=== PATIENT | male | born 1940 | race Caucasian/White ===

== ENCOUNTER 2020-05-11 21:30 | Inpatient (IN) | payer MEDICARE ==
[2020-05-11 21:58] LABS: #Eosinphils 0.1 thou/uL (0.0-0.7); #Lymphocytes 1.3 thou/uL (1.20-3.40); #Monocytes 0.4 thou/uL (0.11-0.59); #Neutrophils 5.6 thou/uL (1.40-6.50); %Eosinophils 1.2 % (0.0-10.0); %Monocytes 4.9 % (0.0-10.0); %Neutrophils 75.9 % (42.0-75.0); Hemoglobin 13.6 g/dL (14.0-18.0); Mean Corpuscular HGB CONC 31.8 g/dL (32.0-36.0); Mean Corpuscular Hemoglobin 29.9 pg (27.0-31.0); Mean Corpuscular Volume 93.9 fL (78.0-98.0); Platelet Count 184 thou/uL (130-400); RBC Distribution Width 12.6 % (11.5-14.5); Red Blood Cell (RBC) Count 4.56 mill/uL (4.70-6.10); White Blood Cell (WBC) Count 7.3 thou/uL (4.8-10.8)
[2020-05-11 22:15] LABS: INR-International Normal Ratio 3.8; Prothrombin Time 37.4 sec (12.0-14.7)
[2020-05-11 22:19] LABS: ALT (SGPT) 13 U/L (8-55); AST (SGOT) 19 U/L (5-34); Albumin 3.8 g/dL (3.4-4.8); Alkaline Phosphatase 27 U/L (40-110); Anion Gap 12 mmol/L (10-20); BUN (Urea Nitrogen) 14 mg/dL (8.4-25.7); Bilirubin, Total 0.8 mg/dL (0.2-1.2); CK (CPK) 55 U/L (30-200); Calc. Creatinine Clearance 0 mL/min (70-130); Calcium 9.1 mg/dL (7.8-10.44); Carbon Dioxide 25 mmol/L (23-31); Chloride 102 mmol/L (98-107); Estimated GFR-MDRD 60; Globulin 2.5 g/dL (2.4-3.5); Glucose 123 mg/dL (83-110); Potassium 3.5 mmol/L (3.5-5.1); Protein, Total 6.3 g/dL (5.8-8.1); Sodium 135 mmol/L (136-145)
--- NOTE | 2020-05-11 22:27 | CT ---
CT HEAD WITHOUT CONTRAST: Date: 05/11/2020 INDICATION: Level II stroke. No comparison. FINDINGS: There is an acute hematoma involving the left temporal lobe in the middle cranial fossa. Hematoma sinan sures approximately 2.0 cm. There is intraventricular extension with blood seen in the left lateral v entricle posteriorly and within the temporal horn. Ventricles have normal size and position. There is mild chronic ischemic white matter change. There i s no evidence of infarct. Osseous windows show evidence of prior surgery involving the floor of the left orbit, which is incomp letely evaluated. Sinuses appear clear. IMPRESSION: Acute hematoma in the left temporal lobe in the middle cranial fossa with intraventricular extension. Findings relayed to Dr. Anderson at 2205 hours. CODE CR. POS: SHIREEN
[2020-05-11 22:41] LABS: CKMB 0.9 ng/mL (0-6.6)
[2020-05-11] MEDS ORDERED: Fentanyl 100 MCG/2 ML VIAL ONE (22:52)
[2020-05-11] MEDS ORDERED: HUM PROTHROMBIN CPLX(PCC)4FACT 1,000 UNIT, Human Prothrombin Complx(PCC) 500 UNIT in Ad... IV SCH (23:00)
[2020-05-11] MEDS ORDERED: Phytonadione 10 MG/ML AMP SLOW IVP SCH (23:00)
[2020-05-11] MEDS ORDERED: Phytonadione 10 MG/ML AMP ONE (23:17)
[2020-05-11] MEDS ORDERED: Ondansetron PF 4 MG/2 ML Vial ONE (23:33)
[2020-05-11] MEDS ORDERED: Ondansetron PF 4 MG/2 ML Vial IVP PRN (23:35)
[2020-05-11] MEDS ORDERED: Labetalol HCl 100 MG/20 ML VIAL SLOW IVP PRN (23:35)
[2020-05-11] MEDS ORDERED: Milk Of Magnesia 30 ML UDCUP PO PRN (23:35)
[2020-05-11] MEDS ORDERED: Docusate 100 MG CAP PO PRN (23:35)
[2020-05-11] MEDS ORDERED: hydrALAZINE 20 MG/ML VIAL SLOW IVP PRN (23:38)
[2020-05-11] MEDS ORDERED: Fentanyl 100 MCG/2 ML VIAL SLOW IVP PRN ×2 (23:40)
--- NOTE | 2020-05-12 00:39 | PDOC.HHP ---
Hospitalist HPI - History of Present Illness altered mental status History of Present Illness: history is limited patient with altered mental status only oriented to person, family memberes were not present during my evaluation. Case of an 79 y/o male with a pmhx of sporiasis, htn, ckd, cad s/p ppm, hx of PEs, and factor xiii blood disorder who comes to hospital brought by due to altered mental status. apparently patient was on his usual state of health until today when he was noted by his to be hypoactive, disoriented and speaking nonsense for which she got worried and brought patient to hospital. At the ED patient with was dx with ICH and neurosurgeon was called to evaluated patient. no emergency procedure was needed at the moment hospitalist was called for further evaluation and medical management. of note refers patient recently has been having multiple falls, she refers a fall about 1 week ago when patient fell off a tractor and a previous one requiring orbital repair Hospitalist ROS - Review of Systems ROS unobtainable: due to mental status Hospitalist History - Past Medical History Source: RN notes reviewed, old records - Past Surgical History Past Surgical History: reports: CABG, Cataract Removal Other Surgical History: s/p ppm orbital repair - Family History Other Family History: unable to asses due to disorientation - Exam General Appearance: NAD, awake alert Eye: PERRL, anicteric sclera ENT: normocephalic atraumatic, no oropharyngeal lesions Neck: supple, symmetric, no JVD Heart: RRR, no murmur, no gallops Respiratory: CTAB, no wheezes, no rales, no ronchi Gastrointestinal: soft, non-tender, non-distended, normal bowel sounds Extremities: no cyanosis, no clubbing, no edema Skin: normal turgor, no lesions, no rashes Neurological: cranial nerve grossly intact, normal sensation to touch, no weakness Musculoskeletal: normal tone, normal strength, no muscle wasting Psychiatric: normal affect, normal behavior, A&O x 3, oriented to person Hospitalist Results - Labs Result Diagrams: 05/11/20 21:38 05/11/20 21:38 Lab results: WBC 7.3 thou/uL (4.8-10.8) 05/11/20 21:38 Hgb 13.6 g/dL (14.0-18.0) L 05/11/20 21:38 Hct 42.8 % (42.0-52.0) 05/11/20 21:38 MCV 93.9 fL (78.0-98.0) 05/11/20 21:38 Plt Count 184 thou/uL (130-400) 05/11/20 21:38 Neutrophils % 75.9 % (42.0-75.0) H 05/11/20 21:38 Sodium 135 mmol/L (136-145) L 05/11/20 21:38 Potassium 3.5 mmol/L (3.5-5.1) 05/11/20 21:38 Chloride 102 mmol/L (98-107) 05/11/20 21:38 Carbon Dioxide 25 mmol/L (23-31) 05/11/20 21:38 BUN 14 mg/dL (8.4-25.7) 05/11/20 21:38 Creatinine 1.17 mg/dL (0.7-1.3) 05/11/20 21:38 Glucose 123 mg/dL (83-110) H 05/11/20 21:38 Calcium 9.1 mg/dL (7.8-10.44) 05/11/20 21:38 Total Bilirubin 0.8 mg/dL (0.2-1.2) 05/11/20 21:38 AST 19 U/L (5-34) 05/11/20 21:38 ALT 13 U/L (8-55) 05/11/20 21:38 Alkaline Phosphatase 27 U/L (40-110) L 05/11/20 21:38 Creatine Kinase 55 U/L (30-200) 05/11/20 21:38 CK-MB (CK-2) 0.9 ng/mL (0-6.6) 05/11/20 21:38 Troponin I 0.036 ng/mL (< 0.028) H 05/11/20 21:38 Serum Total Protein 6.3 g/dL (5.8-8.1) 05/11/20 21:38 Albumin 3.8 g/dL (3.4-4.8) 05/11/20 21:38 - Radiology Interpretation CT scan - head Additional Comment: Acute hematoma in the left temporal lobe in the middle cranial fossa with intraventricular extension. Hospitalist H&P A/P - Problem (1) ICH (intracerebral hemorrhage) Code(s): I61.9 - NONTRAUMATIC INTRACEREBRAL HEMORRHAGE, UNSPECIFIED Status: Acute (2) HTN (hypertension) Code(s): I10 - ESSENTIAL (PRIMARY) HYPERTENSION Status: Acute (3) Hx of pulmonary embolus Code(s): Z86.711 - PERSONAL HISTORY OF PULMONARY EMBOLISM Status: Acute (4) CKD (chronic kidney disease) Code(s): N18.9 - CHRONIC KIDNEY DISEASE, UNSPECIFIED Status: Acute (5) CAD (coronary artery disease) Code(s): I25.10 - ATHSCL HEART DISEASE OF [place] CORONARY ARTERY W/O ANG PCTRS Status: Acute (6) Factor XII deficiency Code(s): D68.2 - HEREDITARY DEFICIENCY OF OTHER CLOTTING FACTORS Status: Acute - Plan Plan: 79y/o male with the stated pmhx comes with altered mental state secondary to ich. patient on warfarin secondary to factor xii def, and hx of PEs ICH - brain ct consistent with ich - hx of warfarin use due to factor 12 def and hx of pes. given kcentra and vitk at the ED - neuro surgeon was consulted - maintain systolic b/p below 160 systolic, on labetolol / hydralazine prn - d/c warfarin, will likely need ivf - icu admit - f/u inr - repeat head ct in am - neurologist consulted - on seziure prophylaxis with keppra -no need for surgery at the moment, head ct will be repeated in am. will remain npo in case patient conditions worsens htn / cad - continue home meds, will hold any anticoagulation elevated troponin - likely nstemi type 2 do to ich - will send series to evaluated trend
--- NOTE | 2020-05-12 00:45 | CON ---
DATE OF CONSULTATION: 05/11/2020 HISTORY OF PRESENT ILLNESS: Mr. Lenz is a 79-year-old male, who was brought to the emergency room by EMS. stated that her was acting weird. He was unable to explain his head pain. She states that he was talking gibberish. When I saw Mr. Lenz in the emergency room, he had spontaneous eye opening, he was slightly confused, and he did obey commands. He was moving all his extremities and he had a slight left facial droop. CT of the Brain indicated a left intraventricular hemorrhage. Patient was given Kcentra and Vitamin K in the ED since he is taking Coumadin. REVIEW OF SYSTEMS: CONSTITUTIONAL: Denies fever or chills. ENT: Denies change in vision or hearing. CARDIAC: Denies chest pain, shortness of breath, or diaphoresis. PULMONARY: Denies shortness of breath, cough, or hemoptysis. GI: Denies abdominal pain, nausea, vomiting, diarrhea, or change in stool formation and consistency. : Denies trouble with urination, frequency of urination, or bloody urine. SKIN: Denies skin rash, bruising, bleeding, or skin masses. MUSCULOSKELETAL: As per history of present illness. NEUROLOGICAL: As per the history of present illness. PSYCHOLOGICAL: Denies anxiety, depression, or behavior changes. ALLERGIES: CLINDAMYCIN AND PENICILLIN. CURRENT MEDICATIONS: 1. Metoprolol 25 mg. 2. Simvastatin 20 mg. 3. Fenofibrate 145 mg. 4. Dutasteride/tamsulosin 0.5 mg/0.4 mg. 5. Oxybutynin 10 mg. 6. Warfarin 2 mg. 7. Sertraline 25 mg. 8. Aspirin 81 mg. 9. Pepcid 20 mg. 10. Enbrel 50 mg/mL. PAST MEDICAL HISTORY: Psoriasis, factor XII clotting disorder, hypertension, pulmonary embolism, hiatal hernia, stage 3 kidney disease, pacemaker, and orbital floor fracture. PAST SURGICAL HISTORY: Orbital floor surgery, pacemaker, triple bypass, cataract, and carpal tunnel. FAMILY HISTORY: Father; heart trouble, CHF, renal failure. Mother; COPD, CHF, blood clot. SOCIAL HISTORY: The patient denies alcohol use, illicit drug use, and has never smoked. PHYSICAL EXAMINATION: VITAL SIGNS: BP 120/72, pulse 74, respirations 18, and temperature 98.6. HEENT: Pupils are equal. Extraocular movements are intact. NECK: Soft, supple. No masses are noted. Range of motion is intact and nonpainful. NEUROLOGICAL: A and O x2 with expressive aphasia. UPPER EXTREMITIES: He has good bilateral strength in his deltoids, biceps, triceps, wrist extension, finger extension, finger intrinsics. Lower extremities, he has good strength in the iliopsoas, quadriceps, hamstring, anterior tib, EHL, and gastrocnemius. I could not appreciate any area of dermatomal sensory loss. The toes are downgoing. IMAGING: CT of the brain, left intraventricular hemorrhage. LABORATORY DATA: White blood cells 7.3, platelet count 184. PT 37.4, INR 3.8, sodium 135. PLAN: Kcentra and vitamin K were given in the emergency room. The patient will be admitted to the ICU. Repeat CT of the brain in the morning and CTA of the Head. If scan shows improvement or no change, we will transfer care to Medicine Service. Supportive care. No intracranial surgery at the present time. We will have him follow up in 2 to 3 weeks in our clinic and repeat scan prior to his visit. 50 minutes spent reviewing images, examining the patient, being available for consult questions. Job ID: [id number] [facility]
[2020-05-12 01:12] LABS: Troponin I 0.035 ng/mL (< 0.028)
[2020-05-12] MEDS ORDERED: Docusate 100 MG CAP PO PRN (01:59)
[2020-05-12] MEDS: Sodium Chloride 0.9% 1,000 ML IV SCH ×2 (02:07→13:40)
[2020-05-12 04:00] LABS: INR-International Normal Ratio 1.2; Prothrombin Time 15.5 sec (12.0-14.7)
[2020-05-12 04:18] LABS: Troponin I 0.022 ng/mL (< 0.028)
--- NOTE | 2020-05-12 07:33 | CT ---
PRELIMINARY REPORT/[facility]/EMERGENCY AFTER HOURS PROCEDURE EXAM: CT Head Without Intravenous Contrast. CLINICAL HISTORY: Follow up on bleed TECHNIQUE: Axial computed tomography images of the head/brain without intravenous contrast. COMPARISON: None provided. FINDINGS: BRAIN: Hypodensity of the white matter is nonspecific but likely represents chronic microvascular ischemic d isease. No CT evidence for acute territorial infarct. No midline shift or extra-axial collection. VENTRICLES: Left temporal lobe hematoma with intraventricular extension into the occipital and temporal horns of the left lateral ventricle. Hematoma is unchanged in size and extent compared to prior study dated 05/11/2020. Ventricles are unchanged in size or morphology compared to prior. ORBITS: The orbits are unremarkable. SINUSES AND MASTOIDS: The paranasal sinuses and mastoid air cells are clear. SOFT TISSUES: No significant facial or scalp soft tissue swelling evident. No radiopaque foreign body is seen. BONES: No acute skull fracture. IMPRESSION: Left temporal lobe hematoma with intraventricular extension into the occipital and temporal horns of the left lateral ventricle. Hematoma is unchanged in size and extent compared to prior study dated 05/11/2020. No new intracranial hemorrhage. ELECTRONICALLY SIGNED BY: Socorro Graff MD May 12, 2020 5:02:29 AM CDT This report is intended for review by the ordering physician only, in accordance of law. If you recei ve this report in error, please call [facility] at [phone]. FINAL REPORT Exam: Head CT without contrast HISTORY: Follow-up intraventricular hemorrhage. COMPARISON: 05/11/2020 FINDINGS: Hemorrhage: Stable intraventricular hemorrhage involving the temporal horn of left lateral ventricle as well as the occipital horn of the left lateral ventricle. No new intraventricular or intraparenchymal hemorrhage. Brain parenchyma: Cortical meléndez-white matter differentiation is preserved. No mass effect or midline shift. Basilar cisterns are patent. Ventricular system: Stable configuration Calvarium: Intact. Sinuses and mastoid air cells: Adequate aeration. IMPRESSION: 1. This report is in agreement with initial report by [facility]. 2. Stable intraventricular hemorrhage. Transcribed Date/Time: 05/12/2020 7:37 AM
--- NOTE | 2020-05-12 07:34 | PRG ---
DATE OF SERVICE: 05/12/2020 I personally interviewed and examined the patient, agreed with documentation of John Lechuga PA-C dated 05/11/2020. Briefly, Ag Lenz is a very pleasant 79-year-old gentleman on Coumadin, who fell and struck his head on Monday and was doing reasonably well over the weekend until he had an episode of dysphasia yesterday. Difficulty with communication and interpreting language. CT examination of the brain in our emergency department showed intraventricular hemorrhage in the temporal horn on the left side. There was not significant mass effect. A repeat scan has been done this morning. Overnight Mr. Lenz was admitted to the ICU. He has remained neurologically stable. This morning's CAT scan has already been done. Vitals recorded overnight do not show any significant increase in blood pressure. He is afebrile. On examination, Mr. Lenz is awake. He answers questions appropriately. He is hard of hearing and needs his hearing aids to do so, but eventually does answer appropriately. He follows commands well. He does not have any neglect. His receptive language function is working. This morning's CAT scan shows stability in the size of the intraventricular hemorrhage in the temporal horn on the left side. There is no significant mass effect. Mr. Lenz will need neurosurgical intervention during this hospitalization. We need to get a CT angiogram to make sure there is not a large AVM in the area. I doubt there we will see anything, honestly. Eventually, we may consider cerebral angiography, but that could be done as an outpatient. In two weeks, we will see Mr. Lenz in the office or at least review another CAT scan before letting him restart his Coumadin. Job ID: [id number] [facility]
[2020-05-12] MEDS: levETIRAcetam 500 MG TAB PO SCH ×2 (08:39→20:03)
[2020-05-12] MEDS: Famotidine/PF 20 mg/2ml Vial SLOW IVP SCH (08:39)
[2020-05-12] MEDS: Metoprolol Tartrate 25 MG TAB PO SCH ×2 (08:39→20:03)
[2020-05-12] MEDS: Fenofibrate Nanocrystallized 145 MG TAB PO SCH (08:43)
--- NOTE | 2020-05-12 09:09 | CT ---
CT ANGIOGRAM OF BRAIN WITH AND WITHOUT CONTRAST: DATE: 05/12/2020 HISTORY: 79-year-old male with left intraventricular hemorrhage COMPARISON: 05/12/2020, 05/11/2020 TECHNIQUE: Noncontrast brain CT performed. Iodinated IV contrast injected. Bolus chasing technique scan performed through the head. Coronal and sagittal 3-D MIP reconstructions. FINDINGS: The approximately 2 x 2 x 2 cm left temporal lobe intra-axial hematoma adjacent to the temporal horn of the left lateral ventricle remains unchanged in size. Again noted is the spillage of the hemorrhage into the temporal horn, with blood extending into the occipital horn, of the left lateral ventricle. This has not significant changed. Very small amount of blood is present in the contralateral occipital horn of the right lateral ventricle. No hematoma is visualized in the third v entricle, or in the bodies or frontal horns of the lateral ventricles bilaterally. No mass effect or midline shift. No new hemorrhage. Again noted is the surgical mesh at the floor of the left orbit. Atherosclerotic calcification of bilateral carotid siphons. No evidence of high-grade focal short segment acquired stenosis involving intracranial vertebrals, ba silar, bilateral MCAs, bilateral barrow worker helper, bilateral superior cerebellars, and bilateral ACAs. Left PICA is patent. There is a right AICA-PICA. No evidence of AVM or intracranial aneurysm. No dural venous sinus thrombosis. IMPRESSION: 1) no interval change in the left temporal lobe hematoma spilling into the ventricles via temporal ho rn of left lateral ventricle. 2) no arteriovenous malformation or aneurysm identified. 3) no interval change overall. 4) old surgical repair of left orbital floor blowout fracture
--- NOTE | 2020-05-12 13:06 | CON ---
NEUROLOGY CONSULTATION DATE OF CONSULTATION: 05/12/2020 REASON FOR CONSULTATION: Altered mental status. HISTORY OF PRESENT ILLNESS: Mr. Ag Lenz is a 79-year-old male with history significant for hypertension, end-stage renal disease, coronary artery disease, status post pacemaker, history of pulmonary embolism, and X11 factor deficiency, presented to the hospital with altered mental status. He was brought by the because he was in usual state of health until yesterday when found him extremely disoriented and his speech was not making sense. The decided to bring him to the emergency room with a head CT that was done, which was consistent with left temporal intracranial hemorrhage with extension into the ventricles. Neurosurgery was consulted and no neurosurgical intervention was recommended. The patient was admitted to the CCU for further evaluation. The also reported multiple falls and there was a fall a week ago when the patient fell off the tractor and required orbital repair. REVIEW OF SYSTEMS: Unobtainable due to the patient's mental status. PAST MEDICAL HISTORY: 1. Hypertension. 2. Chronic kidney disease. 3. Coronary artery disease. 4. History of pulmonary embolisms. 5. Hypercoagulable state. 6. Psoriasis. PAST SURGICAL HISTORY: 1. Status post pacemaker implantation. 2. CABG. 3. Cataract removal. 4. Orbital repair secondary to a fall. FAMILY HISTORY: No significant family history in general per records. ALLERGIES: Pencillins, clindamycin PHYSICAL EXAMINATION: 130/72 91 18 GENERAL: Elderly male, in mild distress. CVS: Regular rate and rhythm. CHEST: Clear. ABDOMEN: Soft. NECK: Supple. EXTREMITIES: No clubbing, cyanosis, or edema. NEUROLOGICAL: Mental status; the patient is alert and oriented to person and place. Not oriented to month or year. He does have receptive aphasia. Cranial nerves 2 through 12 intact except dysarthria. Motor; minimal movement of all 4 extremities. Sensory, minimal withdrawal to nailbed pressure. The patient seems to be somnolent, does not follow commands, does not track or maintain eye contact. He does know his name and place, hospital. Cerebellar; did not cooperate with the testing. Gait deferred due to the patient's safety reasons. DATA REVIEWED: I reviewed the labs, he was significant for hyponatremia at 135 and a glucose of 123. CBC was essentially unremarkable except hemoglobin of 13.6. Head CT reviewed, which showed acute hematoma in the left temporal lobe and the middle cranial fossa with intraventricular extension. The repeat head CT from today was reviewed, which did not show any interval change. EEG was reviewed, which was negative for underlying seizure activity. Lab results: WBC 7.3 thou/uL (4.8-10.8) 05/11/20 21:38 Hgb 13.6 g/dL (14.0-18.0) L 05/11/20 21:38 Hct 42.8 % (42.0-52.0) 05/11/20 21:38 MCV 93.9 fL (78.0-98.0) 05/11/20 21:38 Plt Count 184 thou/uL (130-400) 05/11/20 21:38 Neutrophils % 75.9 % (42.0-75.0) H 05/11/20 21:38 Sodium 135 mmol/L (136-145) L 05/11/20 21:38 Potassium 3.5 mmol/L (3.5-5.1) 05/11/20 21:38 Chloride 102 mmol/L (98-107) 05/11/20 21:38 Carbon Dioxide 25 mmol/L (23-31) 05/11/20 21:38 BUN 14 mg/dL (8.4-25.7) 05/11/20 21:38 Creatinine 1.17 mg/dL (0.7-1.3) 05/11/20 21:38 Glucose 123 mg/dL (83-110) H 05/11/20 21:38 Calcium 9.1 mg/dL (7.8-10.44) 05/11/20 21:38 Total Bilirubin 0.8 mg/dL (0.2-1.2) 05/11/20 21:38 AST 19 U/L (5-34) 05/11/20 21:38 ALT 13 U/L (8-55) 05/11/20 21:38 Alkaline Phosphatase 27 U/L (40-110) L 05/11/20 21:38 Creatine Kinase 55 U/L (30-200) 05/11/20 21:38 CK-MB (CK-2) 0.9 ng/mL (0-6.6) 05/11/20 21:38 Troponin I 0.036 ng/mL (< 0.028) H 05/11/20 21:38 Serum Total Protein 6.3 g/dL (5.8-8.1) 05/11/20 21:38 Albumin 3.8 g/dL (3.4-4.8) 05/11/20 21:38 - Radiology Interpretation CT scan - head Acute hematoma in the left temporal lobe in the middle cranial fossa with intraventricular extension. - Problem list (1) ICH (intracerebral hemorrhage) Code(s): I61.9 - NONTRAUMATIC INTRACEREBRAL HEMORRHAGE, UNSPECIFIED Status: Acute (2) HTN (hypertension) Code(s): I10 - ESSENTIAL (PRIMARY) HYPERTENSION Status: Acute (3) Hx of pulmonary embolus Code(s): Z86.711 - PERSONAL HISTORY OF PULMONARY EMBOLISM Status: Acute (4) CKD (chronic kidney disease) Code(s): N18.9 - CHRONIC KIDNEY DISEASE, UNSPECIFIED Status: Acute (5) CAD (coronary artery disease) Code(s): I25.10 - ATHSCL HEART DISEASE OF [place] CORONARY ARTERY W/O ANG PCTRS Status: Acute (6) Factor XII deficiency Code(s): D68.2 - HEREDITARY DEFICIENCY OF OTHER CLOTTING FACTORS Status: Acute ASSESSMENT AND PLAN: Mr. Ag Lenz is consulted for altered mental status. Altered mental status is most likely secondary to acute intracranial hemorrhage. He is also on warfarin secondary to X11 deficiency and history of pulmonary embolisms. Discontinue warfarin because of recent bleed. Neuro checks every 2 hours. Consult Neurosurgery and stat noncontrast head CT if the neurological condition declines. Strict control of blood pressure below 160, on labetalol and hydralazine p.r.n. Telemetry. Continue Keppra for seizure prophylaxis. Recommend EEG to rule out underlying seizure activity. Continue home medications, but hold any anticoagulation or antiplatelet therapy at this time. The plan is discussed with the patient and the nursing staff. We will continue to follow. Thank you for the consult. Job ID: [id number] [facility]
[2020-05-12] MEDS ORDERED: Iopamidol-370 76% 500 ML 1 ML ONE (16:21)
--- NOTE | 2020-05-12 19:58 | CON ---
DATE OF CONSULTATION: HISTORY OF PRESENT ILLNESS: Delfin is a 79-year-old male, who was admitted with a brain bleed after presenting with confusion. We were consulted because of his presence in the Critical Care Unit. PAST MEDICAL HISTORY: Remarkable for; 1. Psoriasis. 2. Hypertension. 3. History of coronary artery disease. 4. History of pulmonary embolism. 5. History of chronic kidney disease. 6. History of coronary artery bypass grafting. 7. History of cataract surgery. FAMILY HISTORY: Negative for lung disease in early age. REVIEW OF SYSTEMS: Not accurately obtainable. PHYSICAL EXAMINATION: VITAL SIGNS: Heart rates in the 60, blood pressure 124/55, respiratory rates in the teens. HEAD AND NECK: Unremarkable. He is protecting his airway. LUNGS: Clear. He is on room air. HEART: Regular rhythm. S1, S2 are normal. Grade 1 to 2/6 systolic murmur. EXTREMITIES: Without asymmetry or edema. NEUROLOGIC: He is oriented at times to person and place. LABORATORY DATA: His CT scan is unchanged. Tentatively scheduled for CT angiogram today. He is stable for now. We will follow along with the other physicians. Job ID: [id number]
[2020-05-12] MEDS: Atorvastatin Calcium 10 MG TAB PO SCH (20:03)
[2020-05-12] MEDS: Acetaminophen 325 MG TAB PO PRN (20:04)
--- NOTE | 2020-05-12 21:22 | EEG ---
DATE OF SERVICE: 05/12/2020 ATTENDING PHYSICIAN: Adenike Sahrma MD This EEG was performed using 24-channel payworkstek video digital EEG machine with 24-disk electrodes. This was an extended 2 hours 5 minutes of inpatient video EEG recording. Digital analysis of the EEG was done for spike and seizure detection which revealed no abnormalities. BACKGROUND: The posterior background rhythm is 9-10 hertz. The background rhythm attenuates with eye opening and enhances with eye closure. HYPERVENTILATION: Not performed. PHOTIC STIMULATION: No significant response seen with photic stimulation. SLEEP: Drowsiness and sleep are observed. EEG DIAGNOSIS: Occasional irregular theta activity seen during the recording. CLINICAL INTERPRETATION: This EEG is consistent with mild generalized nonspecific cerebral dysfunction. No ictal or interictal epileptiform abnormalities seen during the recording. Job ID: [id number]
[2020-05-13] MEDS: Sodium Chloride 0.9% 1,000 ML IV SCH ×2 (06:27→20:13)
--- NOTE | 2020-05-13 07:31 | PRG ---
DATE OF SERVICE: 05/13/2020 I saw Mr. Lenz in the ICU this morning. A CT angiogram was done yesterday. Mr. Lenz is hard of hearing, but does not have any complaints for me. His vitals have been stable as is his neurological examination. The CT angiogram does not show any obvious large flow voids in the area of the temporal horn of the lateral ventricle on the left side where his hemorrhage is located. There is no obvious [place] aneurysm and no other obvious vascular malformation. Mr. Lenz will not need neurosurgical intervention during this hospitalization. We are going to order followup CT scan of the brain in approximately 3 weeks from our clinic and I will call him with the results. Please call with questions. (15 min, >50% counseling, educating, coordinating care) Job ID: [id number] [facility]
[2020-05-13] MEDS: Metoprolol Tartrate 25 MG TAB PO SCH ×3 (09:41→21:07)
[2020-05-13] MEDS: Acetaminophen 325 MG TAB PO PRN (09:41)
[2020-05-13] MEDS: Fenofibrate Nanocrystallized 145 MG TAB PO SCH (09:41)
[2020-05-13] MEDS: levETIRAcetam 500 MG TAB PO SCH ×2 (09:41→20:12)
--- NOTE | 2020-05-13 09:46 | PRG ---
DATE OF SERVICE: 05/13/2020 OBJECTIVE: VITAL SIGNS: Delfin is afebrile. Heart rate is in the 60, blood pressure 102/61. LUNGS: Clear. HEART: Regular rhythm. ABDOMEN: Soft. LABORATORY DATA: No new lab. ASSESSMENT AND PLAN: No obvious AV malformation was identified. No obvious aneurysm was identified on a CT angiogram. Anticipated to have a followup CT in 3 weeks. He probably should be referred to rehab for a while unless he shows that he can quickly get back to his baseline. He is stable to move out of critical care unit. We will sign off. Job ID: [id number]
[2020-05-13] MEDS: Famotidine/PF 20 mg/2ml Vial SLOW IVP SCH (10:02)
--- NOTE | 2020-05-13 12:36 | PDOC.HOSPP ---
- Subjective Encounter Date: 05/13/20 Subjective: NEUROLOGY PROGRESS NOTE Patient alert and oriented and participating with PT. - Objective Vital Signs & Weight: Vital Signs (12 hours) Temp 05/13/20 08:00 98.3 F 05/13/20 04:00 98.6 F Weight Admit Weight 180 lb Weight 179 lb 0.246 oz Most Recent Monitor Data Heart Rate from ECG 67 NIBP 102/61 NIBP BP-Mean 74 Respiration from ECG 22 SpO2 95 I&O: 05/12/20 05/13/20 05/14/20 06:59 06:59 06:59 Intake Total 310 1845 480 Output Total 475 1395 425 Balance -165 450 55 Result Diagrams: 05/11/20 21:38 05/11/20 21:38 Radiology Reviewed by me: Yes EKG Reviewed by me: Yes Hospitalist ROS - Review of Systems Constitutional: denies: fever, chills, sweats, weakness, malaise, other Eyes: denies: pain, vision change, conjunctivae inflammation, eyelid inflammation, redness, other ENT: denies: ear pain, ear discharge, nose pain, nose discharge, nose congestion , mouth pain, mouth swelling, throat pain, throat swelling, other Respiratory: denies: cough, dry, shortness of breath, hemoptysis, SOB with excertion, pleuritic pain, sputum, wheezing, other Genitourinary: denies: dysuria, frequency, incontinence, hematuria, retention, other Musculoskeletal: denies: neck pain, shoulder pain, arm pain, back pain, hand pain, leg pain, foot pain, other Skin: denies: rash, lesions, winsome, bruising, other Neurological: reports: weakness, change in speech. denies: numbness, incoordination, confusion, seizures, other - Medication Medications: Active Medications Generic Name Dose Route Start Last Admin Trade Name Freq PRN Reason Stop Dose Admin Acetaminophen 650 mg 05/11/20 23:35 05/13/20 09:41 Tylenol PO 650 mg Q6H PRN Administration Fever > 101 or Headache Atorvastatin Calcium 10 mg 05/12/20 21:00 05/12/20 20:03 Lipitor PO 10 mg HS FERMIN Administration Fenofibrate 145 mg 05/12/20 09:00 05/13/20 09:41 Tricor PO 145 mg DAILY FERMIN Administration Sodium Chloride 1,000 mls @ 70 mls/hr 05/11/20 23:45 05/13/20 06:27 Normal Saline 0.9% IV 1,000 mls .[id number] FERMIN Administration Levetiracetam 500 mg 05/12/20 09:00 05/13/20 09:41 Keppra PO 500 mg BID FERMIN Administration Metoprolol Tartrate 25 mg 05/12/20 09:00 05/13/20 09:41 Lopressor PO 25 mg BID FERMIN Administration Sertraline HCl 25 mg 05/12/20 09:00 05/13/20 09:41 Zoloft PO 25 mg DAILY FERMIN Administration - Exam General Appearance: awake alert Eye: PERRL ENT: normocephalic atraumatic Neck: supple Heart: RRR Respiratory: CTAB Gastrointestinal: soft Extremities: no cyanosis Skin: normal turgor Neurological: no new deficit Musculoskeletal: normal tone, no muscle wasting Psychiatric: normal affect, normal behavior Hosp A/P (1) ICH (intracerebral hemorrhage) Code(s): I61.9 - NONTRAUMATIC INTRACEREBRAL HEMORRHAGE, UNSPECIFIED Status: Acute (2) CAD (coronary artery disease) Code(s): I25.10 - ATHSCL HEART DISEASE OF [place] CORONARY ARTERY W/O ANG PCTRS Status: Acute (3) CKD (chronic kidney disease) Code(s): N18.9 - CHRONIC KIDNEY DISEASE, UNSPECIFIED Status: Acute (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 HCT showed stable left temporal hemorrhage, EEG reviewed and was negative for seizure activity. Neurochecks every 4 hours. Neurosurgery on board. No surgical intervention needed at this time. CTA head negative for aneurysm. Telemetry Hold anticoagulation. Strict control of BP. PT/OT/Speech. Continue medical management per primary team.
--- NOTE | 2020-05-13 18:37 | PDOC.HOSPP ---
- Subjective Encounter Date: 05/13/20 Encounter Time: 11:00 Subjective: Pt seen for followup re; intracranial bleed. Pt hard of hearing, denies any complaints. - Objective Vital Signs & Weight: Vital Signs (12 hours) Temp Pulse Ox 05/13/20 16:00 98.5 F 05/13/20 13:00 98.6 F 05/13/20 08:00 98.3 F 100 Weight Admit Weight 180 lb Weight 179 lb 0.246 oz Most Recent Monitor Data Heart Rate from ECG 61 NIBP 126/67 NIBP BP-Mean 86 Respiration from ECG 23 SpO2 97 I&O: 05/12/20 05/13/20 05/14/20 06:59 06:59 06:59 Intake Total 310 1845 1160 Output Total 475 1395 625 Balance -165 450 535 Result Diagrams: 05/11/20 21:38 05/11/20 21:38 Hospitalist ROS - Medication Medications: Active Medications Generic Name Dose Route Start Last Admin Trade Name Freq PRN Reason Stop Dose Admin Acetaminophen 650 mg 05/11/20 23:35 05/13/20 09:41 Tylenol PO 650 mg Q6H PRN Administration Fever > 101 or Headache Atorvastatin Calcium 10 mg 05/12/20 21:00 05/12/20 20:03 Lipitor PO 10 mg HS FERMIN Administration Fenofibrate 145 mg 05/12/20 09:00 05/13/20 09:41 Tricor PO 145 mg DAILY FERMIN Administration Sodium Chloride 1,000 mls @ 70 mls/hr 05/11/20 23:45 05/13/20 06:27 Normal Saline 0.9% IV 1,000 mls .[id number] FERMIN Administration Levetiracetam 500 mg 05/12/20 09:00 05/13/20 09:41 Keppra PO 500 mg BID FERMIN Administration Metoprolol Tartrate 25 mg 05/12/20 09:00 05/13/20 09:41 Lopressor PO 25 mg BID FERMIN Administration Sertraline HCl 25 mg 05/12/20 09:00 05/13/20 09:41 Zoloft PO 25 mg DAILY FERMIN Administration Hosp A/P - Plan - Assessment (1) ICH (intracerebral hemorrhage) Code(s): I61.9 - NONTRAUMATIC INTRACEREBRAL HEMORRHAGE, UNSPECIFIED Status: Acute (2) HTN (hypertension) Code(s): I10 - ESSENTIAL (PRIMARY) HYPERTENSION Status: Acute (3) Hx of pulmonary embolus Code(s): Z86.711 - PERSONAL HISTORY OF PULMONARY EMBOLISM Status: Acute (4) CKD (chronic kidney disease) Code(s): N18.9 - CHRONIC KIDNEY DISEASE, UNSPECIFIED Status: Acute (5) CAD (coronary artery disease) Code(s): I25.10 - ATHSCL HEART DISEASE OF [place] CORONARY ARTERY W/O ANG PCTRS Status: Acute (6) 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
[2020-05-13] MEDS: Atorvastatin Calcium 10 MG TAB PO SCH (20:12)
[2020-05-14] MEDS: levETIRAcetam 500 MG TAB PO SCH ×2 (08:59→21:06)
[2020-05-14] MEDS: Sodium Chloride 0.9% 1,000 ML IV SCH (08:59)
[2020-05-14] MEDS: Acetaminophen 325 MG TAB PO PRN ×2 (09:00→18:28)
[2020-05-14] MEDS: Metoprolol Tartrate 25 MG TAB PO SCH ×2 (09:00→21:06)
[2020-05-14] MEDS: Fenofibrate Nanocrystallized 145 MG TAB PO SCH (09:00)
[2020-05-14 12:25] LABS: #Eosinphils 0.2 thou/uL (0.0-0.7); #Lymphocytes 1.5 thou/uL (1.20-3.40); #Monocytes 0.6 thou/uL (0.11-0.59); #Neutrophils 5.5 thou/uL (1.40-6.50); %Basophils 0.6 % (0.0-1.0); %Eosinophils 3.1 % (0.0-10.0); %Lymphocytes 18.6 % (21.0-51.0); %Monocytes 7.3 % (0.0-10.0); %Neutrophils 70.3 % (42.0-75.0); Hemoglobin 14.6 g/dL (14.0-18.0); Mean Corpuscular HGB CONC 32.6 g/dL (32.0-36.0); Mean Corpuscular Hemoglobin 30.7 pg (27.0-31.0); Mean Corpuscular Volume 94.3 fL (78.0-98.0); Mean Platelet Volume 7.7 fL (7.4-10.4); Platelet Count 174 thou/uL (130-400); RBC Distribution Width 12.4 % (11.5-14.5); Red Blood Cell (RBC) Count 4.75 mill/uL (4.70-6.10); White Blood Cell (WBC) Count 7.9 thou/uL (4.8-10.8)
[2020-05-14 12:33] VITALS: BMI 27.6
[2020-05-14 12:44] LABS: Anion Gap 14 mmol/L (10-20); BUN (Urea Nitrogen) 12 mg/dL (8.4-25.7); Calc. Creatinine Clearance 80 mL/min (70-130); Calcium 8.6 mg/dL (7.8-10.44); Carbon Dioxide 22 mmol/L (23-31); Chloride 103 mmol/L (98-107); Estimated GFR-MDRD 85; Glucose 109 mg/dL (83-110); Potassium 3.7 mmol/L (3.5-5.1); Sodium 135 mmol/L (136-145)
--- NOTE | 2020-05-14 14:59 | PDOC.HOSPP ---
- Subjective Encounter Date: 05/14/20 Subjective: NEUROLOGY PROGRESS NOTE Patient alert and oriented and following commands appropriately. - Objective Vital Signs & Weight: Vital Signs (12 hours) Temp Pulse Ox 05/14/20 12:00 98.9 F 05/14/20 08:00 98.6 F 100 05/14/20 04:00 99.4 F Weight Admit Weight 180 lb Weight 181 lb 8 oz Most Recent Monitor Data Heart Rate from ECG 60 NIBP 134/71 NIBP BP-Mean 92 Respiration from ECG 23 SpO2 100 I&O: 05/13/20 05/14/20 05/15/20 06:59 06:59 06:59 Intake Total 1845 1220 480 Output Total 1395 1250 750 Balance 450 -30 -270 Result Diagrams: 05/14/20 12:08 05/14/20 12:08 Radiology Reviewed by me: Yes EKG Reviewed by me: Yes Hospitalist ROS - Review of Systems Constitutional: denies: fever, chills, sweats, weakness, malaise, other Eyes: denies: pain, vision change, conjunctivae inflammation, eyelid inflammation, redness, other ENT: denies: ear pain, ear discharge, nose pain, nose discharge, nose congestion , mouth pain, mouth swelling, throat pain, throat swelling, other Respiratory: denies: cough, dry, shortness of breath, hemoptysis, SOB with excertion, pleuritic pain, sputum, wheezing, other Cardiovascular: denies: chest pain, palpitations, orthopnea, paroxysmal noc. dyspnea, edema, light headedness, other Gastrointestinal: denies: nausea, vomiting, abdominal pain, diarrhea, constipation, melena, hematochezia, other Genitourinary: denies: dysuria, frequency, incontinence, hematuria, retention, other Musculoskeletal: denies: neck pain, shoulder pain, arm pain, back pain, hand pain, leg pain, foot pain, other Skin: denies: rash, lesions, winsome, bruising, other Neurological: denies: weakness, numbness, incoordination, change in speech, confusion, seizures, other - Medication Medications: Active Medications Generic Name Dose Route Start Last Admin Trade Name Freq PRN Reason Stop Dose Admin Acetaminophen 650 mg 05/11/20 23:35 05/14/20 09:00 Tylenol PO 650 mg Q6H PRN Administration Fever > 101 or Headache Atorvastatin Calcium 10 mg 05/12/20 21:00 05/13/20 20:12 Lipitor PO 10 mg HS FERMIN Administration Fenofibrate 145 mg 05/12/20 09:00 05/14/20 09:00 Tricor PO 145 mg DAILY FERMIN Administration Sodium Chloride 1,000 mls @ 70 mls/hr 05/11/20 23:45 05/14/20 08:59 Normal Saline 0.9% IV Not Given .[id number] FERMIN Levetiracetam 500 mg 05/12/20 09:00 05/14/20 08:59 Keppra PO 500 mg BID FERMIN Administration Metoprolol Tartrate 25 mg 05/12/20 09:00 05/14/20 09:00 Lopressor PO 25 mg BID FERMIN Administration Pantoprazole Sodium 40 mg 05/14/20 09:00 05/14/20 09:00 Protonix PO 40 mg DAILY FERMIN Administration Sertraline HCl 25 mg 05/12/20 09:00 05/14/20 09:00 Zoloft PO 25 mg DAILY FERMIN Administration Sodium Chloride 10 ml 05/13/20 21:00 05/14/20 09:00 Flush - Normal Saline IVF 10 ml Q12HR FERMIN Administration - Exam General Appearance: awake alert Eye: PERRL ENT: normocephalic atraumatic Neck: supple Heart: RRR Respiratory: CTAB, rales Gastrointestinal: soft Extremities: no cyanosis Skin: normal turgor Neurological: no new deficit Musculoskeletal: normal tone Psychiatric: normal affect Hosp A/P (1) ICH (intracerebral hemorrhage) Code(s): I61.9 - NONTRAUMATIC INTRACEREBRAL HEMORRHAGE, UNSPECIFIED Status: Acute (2) CAD (coronary artery disease) Code(s): I25.10 - ATHSCL HEART DISEASE OF [place] CORONARY ARTERY W/O ANG PCTRS Status: Acute (3) CKD (chronic kidney disease) Code(s): N18.9 - CHRONIC KIDNEY DISEASE, UNSPECIFIED Status: Acute (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 HCT showed stable left temporal hemorrhage, EEG reviewed and was negative for seizure activity. Neurochecks every 4 hours. Neurosurgery on board. No surgical intervention needed at this time. CTA head negative for aneurysm or stenosis. Telemetry Hold anticoagulation. Strict control of BP. PT/OT/Speech. Possible discharge t rehab. Continue medical management per primary team. PLan discussed with the patient and the nursing staff.
--- NOTE | 2020-05-14 19:36 | PDOC.HOSPP ---
- Subjective Encounter Date: 05/14/20 Encounter Time: 15:40 Subjective: Pt seen for followup for intracranial bleed. Sleepy but arousable, answering questions, denies any complaints. - Objective Vital Signs & Weight: Vital Signs (12 hours) Temp Pulse Pulse Resp BP BP BP 05/14/20 16:53 98.0 F 61 16 130/101 H 05/14/20 16:00 98.9 F 05/14/20 14:26 66 128/72 133/71 05/14/20 12:00 98.9 F 05/14/20 08:00 98.6 F Pulse Ox Pulse Ox 05/14/20 16:53 99 05/14/20 16:00 05/14/20 14:26 100 05/14/20 12:00 05/14/20 08:00 100 Weight Admit Weight 180 lb Weight 181 lb 8 oz Most Recent Monitor Data Heart Rate from ECG 62 NIBP 116/65 NIBP BP-Mean 82 Respiration from ECG 19 SpO2 100 I&O: 05/13/20 05/14/20 05/15/20 06:59 06:59 06:59 Intake Total 1845 1220 680 Output Total 1395 1250 1150 Balance 450 -30 -470 Result Diagrams: 05/14/20 12:08 05/14/20 12:08 Additional Labs: Labs and MARs reviewed by me EKG Reviewed by me: Yes (Tele: NSR) Hospitalist ROS - Review of Systems Cardiovascular: denies: chest pain, palpitations, orthopnea, paroxysmal noc. dyspnea, edema, light headedness Genitourinary: denies: dysuria, frequency, incontinence, hematuria, retention - Medication Medications: Active Medications Generic Name Dose Route Start Last Admin Trade Name Freq PRN Reason Stop Dose Admin Acetaminophen 650 mg 05/11/20 23:35 05/14/20 18:28 Tylenol PO 650 mg Q6H PRN Administration Fever > 101 or Headache Atorvastatin Calcium 10 mg 05/12/20 21:00 05/13/20 20:12 Lipitor PO 10 mg HS FERMIN Administration Fenofibrate 145 mg 05/12/20 09:00 05/14/20 09:00 Tricor PO 145 mg DAILY FERMIN Administration Sodium Chloride 1,000 mls @ 70 mls/hr 05/11/20 23:45 05/14/20 08:59 Normal Saline 0.9% IV Not Given .[id number] FERMIN Levetiracetam 500 mg 05/12/20 09:00 05/14/20 08:59 Keppra PO 500 mg BID FERMIN Administration Metoprolol Tartrate 25 mg 05/12/20 09:00 05/14/20 09:00 Lopressor PO 25 mg BID FERMIN Administration Pantoprazole Sodium 40 mg 05/14/20 09:00 05/14/20 09:00 Protonix PO 40 mg DAILY FERMIN Administration Sertraline HCl 25 mg 05/12/20 09:00 05/14/20 09:00 Zoloft PO 25 mg DAILY FERMIN Administration Sodium Chloride 10 ml 05/13/20 21:00 05/14/20 09:00 Flush - Normal Saline IVF 10 ml Q12HR FERMIN Administration - Exam Eye: anicteric sclera ENT: moist mucosa Neck: supple, symmetric Heart: RRR Respiratory: CTAB Gastrointestinal: soft, non-tender Extremities: no cyanosis Musculoskeletal: normal tone, normal strength Psychiatric: normal affect, normal behavior Hosp A/P - Plan - Assessment (1) ICH (intracerebral hemorrhage) Code(s): I61.9 - NONTRAUMATIC INTRACEREBRAL HEMORRHAGE, UNSPECIFIED Status: Acute (2) HTN (hypertension) Code(s): I10 - ESSENTIAL (PRIMARY) HYPERTENSION Status: Chronic (3) Hx of pulmonary embolus Code(s): Z86.711 - PERSONAL HISTORY OF PULMONARY EMBOLISM Status: Chronic (4) CKD (chronic kidney disease) Code(s): N18.9 - CHRONIC KIDNEY DISEASE, UNSPECIFIED Status: Chronic (5) CAD (coronary artery disease) Code(s): I25.10 - ATHSCL HEART DISEASE OF [place] CORONARY ARTERY W/O ANG PCTRS Status: Chronic (6) 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
[2020-05-14] MEDS: Atorvastatin Calcium 10 MG TAB PO SCH (21:06)
[2020-05-15 05:27] LABS: #Eosinphils 0.2 thou/uL (0.0-0.7); #Lymphocytes 1.8 thou/uL (1.20-3.40); #Monocytes 0.6 thou/uL (0.11-0.59); #Neutrophils 4.9 thou/uL (1.40-6.50); %Basophils 0.2 % (0.0-1.0); %Eosinophils 3.1 % (0.0-10.0); %Lymphocytes 23.9 % (21.0-51.0); %Monocytes 7.6 % (0.0-10.0); %Neutrophils 65.2 % (42.0-75.0); Hemoglobin 14.3 g/dL (14.0-18.0); Mean Corpuscular HGB CONC 32.6 g/dL (32.0-36.0); Mean Corpuscular Hemoglobin 30.1 pg (27.0-31.0); Mean Corpuscular Volume 92.3 fL (78.0-98.0); Mean Platelet Volume 7.9 fL (7.4-10.4); Platelet Count 180 thou/uL (130-400); RBC Distribution Width 12.5 % (11.5-14.5); Red Blood Cell (RBC) Count 4.74 mill/uL (4.70-6.10); White Blood Cell (WBC) Count 7.6 thou/uL (4.8-10.8)
[2020-05-15 05:49] LABS: Anion Gap 14 mmol/L (10-20); BUN (Urea Nitrogen) 13 mg/dL (8.4-25.7); Calc. Creatinine Clearance 75 mL/min (70-130); Calcium 8.9 mg/dL (7.8-10.44); Carbon Dioxide 24 mmol/L (23-31); Chloride 102 mmol/L (98-107); Estimated GFR-MDRD 79; Glucose 93 mg/dL (83-110); Potassium 3.6 mmol/L (3.5-5.1); Sodium 136 mmol/L (136-145)
[2020-05-15] MEDS: levETIRAcetam 500 MG TAB PO SCH ×2 (09:44→21:22)
[2020-05-15] MEDS: Fenofibrate Nanocrystallized 145 MG TAB PO SCH (09:45)
[2020-05-15] MEDS: Metoprolol Tartrate 25 MG TAB PO SCH ×2 (09:45→21:22)
--- NOTE | 2020-05-15 11:33 | PDOC.HOSPP ---
- Subjective Encounter Date: 05/15/20 Subjective: NEUROLOGY PROGRESS NOTE Patient alert and oriented and following commands appropriately. No acute events overnight. - Objective Vital Signs & Weight: Vital Signs (12 hours) Temp Pulse Resp BP BP Pulse Ox 05/15/20 11:11 98.5 F 65 22 H 113/57 L 95 05/15/20 07:56 98.2 F 67 14 100/51 L 99 05/15/20 03:47 98 F 59 L 14 120/58 L 96 05/15/20 00:02 97.7 F 62 17 118/59 L 97 Weight Admit Weight 180 lb Weight 179 lb 12.8 oz Most Recent Monitor Data Heart Rate from ECG 62 NIBP 116/65 NIBP BP-Mean 82 Respiration from ECG 19 SpO2 100 I&O: 05/14/20 05/15/20 05/16/20 06:59 06:59 06:59 Intake Total 1220 680 Output Total 1250 1150 Balance -30 -470 Result Diagrams: 05/15/20 05:14 05/15/20 05:14 Additional Labs: Accuchecks 05/15/20 06:48 POC Glucose 92 Radiology Reviewed by me: Yes EKG Reviewed by me: Yes Hospitalist ROS - Review of Systems Constitutional: denies: fever, chills, sweats, weakness, malaise, other Eyes: denies: pain, vision change, conjunctivae inflammation, eyelid inflammation, redness, other ENT: denies: ear pain, ear discharge, nose pain, nose discharge, nose congestion , mouth pain, mouth swelling, throat pain, throat swelling, other Respiratory: denies: cough, dry, shortness of breath, hemoptysis, SOB with excertion, pleuritic pain, sputum, wheezing, other Cardiovascular: denies: chest pain, palpitations, orthopnea, paroxysmal noc. dyspnea, edema, light headedness, other Gastrointestinal: denies: nausea, vomiting, abdominal pain, diarrhea, constipation, melena, hematochezia, other Genitourinary: denies: dysuria, frequency, incontinence, hematuria, retention, other Musculoskeletal: denies: neck pain, shoulder pain, arm pain, back pain, hand pain, leg pain, foot pain, other Skin: denies: rash, lesions, winsome, bruising, other Neurological: denies: weakness, numbness, incoordination, change in speech, confusion, seizures, other - Medication Medications: Active Medications Generic Name Dose Route Start Last Admin Trade Name Freq PRN Reason Stop Dose Admin Acetaminophen 650 mg 05/11/20 23:35 05/14/20 18:28 Tylenol PO 650 mg Q6H PRN Administration Fever > 101 or Headache Atorvastatin Calcium 10 mg 05/12/20 21:00 05/14/20 21:06 Lipitor PO 10 mg HS FERMIN Administration Fenofibrate 145 mg 05/12/20 09:00 05/15/20 09:45 Tricor PO 145 mg DAILY FERMIN Administration Levetiracetam 500 mg 05/12/20 09:00 05/15/20 09:44 Keppra PO 500 mg BID FERMIN Administration Metoprolol Tartrate 25 mg 05/12/20 09:00 05/15/20 09:45 Lopressor PO 25 mg BID FERMIN Administration Pantoprazole Sodium 40 mg 05/14/20 09:00 05/15/20 09:43 Protonix PO 40 mg DAILY FERMIN Administration Sertraline HCl 25 mg 05/12/20 09:00 05/15/20 09:43 Zoloft PO 25 mg DAILY FERMIN Administration Sodium Chloride 10 ml 05/13/20 21:00 05/15/20 09:48 Flush - Normal Saline IVF 10 ml Q12HR FERMIN Administration - Exam General Appearance: awake alert Eye: PERRL ENT: normocephalic atraumatic Neck: supple Heart: RRR Respiratory: CTAB Gastrointestinal: soft Extremities: no cyanosis Skin: normal turgor Neurological: no new deficit Musculoskeletal: normal tone Psychiatric: normal affect, normal behavior, A&O x 3 Hosp A/P (1) ICH (intracerebral hemorrhage) Code(s): I61.9 - NONTRAUMATIC INTRACEREBRAL HEMORRHAGE, UNSPECIFIED Status: Acute (2) CAD (coronary artery disease) Code(s): I25.10 - ATHSCL HEART DISEASE OF [place] CORONARY ARTERY W/O ANG PCTRS Status: Acute (3) CKD (chronic kidney disease) Code(s): N18.9 - CHRONIC KIDNEY DISEASE, UNSPECIFIED Status: Acute (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 Patient stable. Awaiting discharge to rehab. CM on board. HCT showed stable left temporal hemorrhage, EEG reviewed and was negative for seizure activity. Neurochecks every 4 hours. Neurosurgery on board. No surgical intervention needed at this time. CTA head negative for aneurysm or stenosis. Telemetry Hold anticoagulation due to bleed. Strict control of BP. PT/OT/Speech. Continue medical management per primary team. Plan discussed with the patient and the stroke team during MDR rounds.
--- NOTE | 2020-05-15 18:56 | PDOC.HOSPP ---
- Subjective Encounter Date: 05/15/20 Encounter Time: 07:20 Subjective: Pt seen for followup for ICH. No complaints today. - Objective Vital Signs & Weight: Vital Signs (12 hours) Temp Pulse Resp BP Pulse Ox 05/15/20 17:35 98.2 F 67 16 115/56 L 97 05/15/20 11:11 98.5 F 65 22 H 113/57 L 95 05/15/20 07:56 98.2 F 67 14 100/51 L 99 Weight Admit Weight 180 lb Weight 179 lb 12.8 oz Most Recent Monitor Data Heart Rate from ECG 62 NIBP 116/65 NIBP BP-Mean 82 Respiration from ECG 19 SpO2 100 I&O: 05/14/20 05/15/20 05/16/20 06:59 06:59 06:59 Intake Total 1220 680 480 Output Total 1250 1150 180 Balance -30 -470 300 Result Diagrams: 05/15/20 05:14 05/15/20 05:14 Additional Labs: Accuchecks 05/15/20 05/15/20 05/15/20 17:42 10:49 06:48 POC Glucose 98 104 92 Labs and MARs reviewed by me EKG Reviewed by me: Yes (Tele: NSR) Hospitalist ROS - Review of Systems Cardiovascular: denies: chest pain, palpitations, orthopnea, paroxysmal noc. dyspnea, edema, light headedness Skin: denies: rash, lesions, winsome - Medication Medications: Active Medications Generic Name Dose Route Start Last Admin Trade Name Freq PRN Reason Stop Dose Admin Acetaminophen 650 mg 05/11/20 23:35 05/14/20 18:28 Tylenol PO 650 mg Q6H PRN Administration Fever > 101 or Headache Atorvastatin Calcium 10 mg 05/12/20 21:00 05/14/20 21:06 Lipitor PO 10 mg HS FERMIN Administration Fenofibrate 145 mg 05/12/20 09:00 05/15/20 09:45 Tricor PO 145 mg DAILY FERMIN Administration Levetiracetam 500 mg 05/12/20 09:00 05/15/20 09:44 Keppra PO 500 mg BID FERMIN Administration Metoprolol Tartrate 25 mg 05/12/20 09:00 05/15/20 09:45 Lopressor PO 25 mg BID FERMIN Administration Pantoprazole Sodium 40 mg 05/14/20 09:00 05/15/20 09:43 Protonix PO 40 mg DAILY FERMIN Administration Sertraline HCl 25 mg 05/12/20 09:00 05/15/20 09:43 Zoloft PO 25 mg DAILY FERMIN Administration Sodium Chloride 10 ml 05/13/20 21:00 05/15/20 09:48 Flush - Normal Saline IVF 10 ml Q12HR FERMIN Administration - Exam General Appearance: awake alert Eye: anicteric sclera ENT: normocephalic atraumatic Neck: supple, no thyromegaly Heart: RRR Respiratory: CTAB Gastrointestinal: soft, non-tender Psychiatric: normal affect, normal behavior Hosp A/P - Plan - Assessment (1) ICH (intracerebral hemorrhage) Code(s): I61.9 - NONTRAUMATIC INTRACEREBRAL HEMORRHAGE, UNSPECIFIED Status: Acute (2) HTN (hypertension) Code(s): I10 - ESSENTIAL (PRIMARY) HYPERTENSION Status: Chronic (3) Hx of pulmonary embolus Code(s): Z86.711 - PERSONAL HISTORY OF PULMONARY EMBOLISM Status: Chronic (4) CKD (chronic kidney disease) Code(s): N18.9 - CHRONIC KIDNEY DISEASE, UNSPECIFIED Status: Chronic (5) CAD (coronary artery disease) Code(s): I25.10 - ATHSCL HEART DISEASE OF [place] CORONARY ARTERY W/O ANG PCTRS Status: Chronic (6) 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
[2020-05-15] MEDS: Atorvastatin Calcium 10 MG TAB PO SCH (21:22)
[2020-05-16] MEDS: levETIRAcetam 500 MG TAB PO SCH ×2 (08:09→22:41)
[2020-05-16] MEDS: Metoprolol Tartrate 25 MG TAB PO SCH ×2 (08:09→22:41)
[2020-05-16] MEDS: Fenofibrate Nanocrystallized 145 MG TAB PO SCH (08:10)
--- NOTE | 2020-05-16 09:27 | PDOC.HOSPP ---
- Subjective Encounter Date: 05/16/20 Encounter Time: 09:00 Subjective: Patient seen and examined for ICH. No new focal deficits. No headache/N/V or CP. No new complaints. No overnight events - Objective Vital Signs & Weight: Vital Signs (12 hours) Temp Pulse Resp BP BP Pulse Ox 05/16/20 07:58 98.7 F 67 20 111/63 96 05/16/20 04:21 97.4 F L 64 20 132/68 94 L 05/16/20 00:04 97.9 F 62 20 115/56 L 95 Weight Admit Weight 180 lb Weight 173 lb 3.2 oz Most Recent Monitor Data Heart Rate from ECG 62 NIBP 116/65 NIBP BP-Mean 82 Respiration from ECG 19 SpO2 100 I&O: 05/15/20 05/16/20 05/17/20 06:59 06:59 06:59 Intake Total 680 480 Output Total 1150 180 Balance -470 300 Result Diagrams: 05/15/20 05:14 05/15/20 05:14 Additional Labs: Accuchecks 05/16/20 05/15/20 05/15/20 05:32 21:08 17:42 POC Glucose 89 91 98 05/15/20 10:49 POC Glucose 104 Radiology Reviewed by me: Yes (CT brain - ICH) EKG Reviewed by me: Yes (Tele SR) Hospitalist ROS - Review of Systems Cardiovascular: denies: chest pain, palpitations, orthopnea, paroxysmal noc. dyspnea, edema, light headedness, other Gastrointestinal: denies: nausea, vomiting, abdominal pain, diarrhea, constipation, melena, hematochezia, other - Medication Medications: Active Medications Generic Name Dose Route Start Last Admin Trade Name Freq PRN Reason Stop Dose Admin Acetaminophen 650 mg 05/11/20 23:35 05/14/20 18:28 Tylenol PO 650 mg Q6H PRN Administration Fever > 101 or Headache Atorvastatin Calcium 10 mg 05/12/20 21:00 05/15/20 21:22 Lipitor PO 10 mg HS FERMIN Administration Fenofibrate 145 mg 05/12/20 09:00 05/16/20 08:10 Tricor PO 145 mg DAILY FERMIN Administration Levetiracetam 500 mg 05/12/20 09:00 05/16/20 08:09 Keppra PO 500 mg BID FERMIN Administration Metoprolol Tartrate 25 mg 05/12/20 09:00 05/16/20 08:09 Lopressor PO 25 mg BID FERMIN Administration Pantoprazole Sodium 40 mg 05/14/20 09:00 05/16/20 08:08 Protonix PO 40 mg DAILY FERMIN Administration Sertraline HCl 25 mg 05/12/20 09:00 05/16/20 08:10 Zoloft PO 25 mg DAILY FERMIN Administration Sodium Chloride 10 ml 05/13/20 21:00 05/16/20 08:10 Flush - Normal Saline IVF 10 ml Q12HR FERMIN Administration - Exam General Appearance: NAD Heart: RRR, no gallops Respiratory: no wheezes, no ronchi Gastrointestinal: non-tender, non-distended, normal bowel sounds Extremities: no cyanosis, no clubbing Neurological: no new deficit Psychiatric: normal affect, A&O x 3 Hosp A/P - Plan DVT proph w/SCDs ICH -no neurosurgical intervention needed -Anticoag dced due to ICH CAD CKD 2 Factor XII deficiency HTN Hx of pulmonary embolus Anxiety Supratherapeutic INR on admission Overactive bladder PLAN: Cont supportive care Cont Neurochecks Cont Keppra for seizure prophylaxis Restart Oxybutinin Await placement - stable for dc Pt not on antiplatelet/anticoag due to ICH
[2020-05-16] MEDS ORDERED: Polyethylene Glycol 3350 17 GM Packet PO PRN (09:40)
[2020-05-16] MEDS ORDERED: Oxybutynin ER 5 MG TAB PO SCH (10:00)
[2020-05-16] MEDS ORDERED: Senokot S 8.6-50 MG TAB PO SCH ×3 (10:00→21:00)
[2020-05-16] MEDS ORDERED: Loperamide HCl 2 MG CAP PO PRN (10:02)
[2020-05-16] MEDS: Atorvastatin Calcium 10 MG TAB PO SCH (22:41)
--- NOTE | 2020-05-17 08:25 | PDOC.HOSPP ---
- Subjective Encounter Date: 05/17/20 Encounter Time: 08:22 Subjective: Patient seen and examined for ICH. No N/V or new focal deficits. No diarrhea for last 24 hr. No new complaints. No overnight events - Objective Vital Signs & Weight: Vital Signs (12 hours) Temp Pulse Resp BP Pulse Ox 05/17/20 07:50 97.8 F 72 16 102/61 97 05/17/20 04:00 97.8 F 60 20 104/53 L 95 05/17/20 00:00 97.8 F 70 20 101/53 L 96 Weight Admit Weight 180 lb Weight 173 lb 3.2 oz Most Recent Monitor Data Heart Rate from ECG 62 NIBP 116/65 NIBP BP-Mean 82 Respiration from ECG 19 SpO2 100 I&O: 05/16/20 05/17/20 05/18/20 06:59 06:59 06:59 Intake Total 480 Output Total 180 Balance 300 Result Diagrams: 05/15/20 05:14 05/15/20 05:14 EKG Reviewed by me: Yes (Tele SR) Hospitalist ROS - Review of Systems Cardiovascular: denies: chest pain, palpitations, orthopnea, paroxysmal noc. dyspnea, edema, light headedness, other Gastrointestinal: denies: nausea, vomiting, abdominal pain, diarrhea, constipation, melena, hematochezia, other - Medication Medications: Active Medications Generic Name Dose Route Start Last Admin Trade Name Freq PRN Reason Stop Dose Admin Acetaminophen 650 mg 05/11/20 23:35 05/14/20 18:28 Tylenol PO 650 mg Q6H PRN Administration Fever > 101 or Headache Atorvastatin Calcium 10 mg 05/12/20 21:00 05/16/20 22:41 Lipitor PO 10 mg HS FERMIN Administration Fenofibrate 145 mg 05/12/20 09:00 05/16/20 08:10 Tricor PO 145 mg DAILY FERMIN Administration Levetiracetam 500 mg 05/12/20 09:00 05/16/20 22:41 Keppra PO 500 mg BID FERMIN Administration Metoprolol Tartrate 25 mg 05/12/20 09:00 05/16/20 22:41 Lopressor PO Not Given BID FERMIN Pantoprazole Sodium 40 mg 05/14/20 09:00 05/16/20 08:08 Protonix PO 40 mg DAILY FERMIN Administration Sertraline HCl 25 mg 05/12/20 09:00 05/16/20 08:10 Zoloft PO 25 mg DAILY FERMIN Administration Sodium Chloride 10 ml 05/13/20 21:00 05/16/20 22:41 Flush - Normal Saline IVF 10 ml Q12HR FERMIN Administration - Exam General Appearance: NAD Heart: RRR, no gallops Respiratory: no wheezes, no ronchi Gastrointestinal: non-tender, non-distended Extremities: no cyanosis Neurological: no new deficit Hosp A/P - Plan PT/OT, DVT proph w/SCDs ICH -no neurosurgical intervention needed -Anticoag dced due to ICH -on Keppra for seizure prophylaxis CAD CKD 2 Factor XII deficiency HTN Hx of pulmonary embolus Anxiety Supratherapeutic INR on admission Overactive bladder -on Oxybutinin Transient diarrhea - resolved PLAN: Cont Neurochecks Cont supportive care Cont current meds as above Await placement - stable for dc Pt not on antiplatelet/anticoag due to ICH
[2020-05-17] MEDS: Famotidine 20 MG TAB PO SCH ×2 (09:27→20:18)
[2020-05-17] MEDS: levETIRAcetam 500 MG TAB PO SCH ×2 (09:28→20:10)
[2020-05-17] MEDS: Oxybutynin ER 5 MG TAB PO SCH (09:28)
[2020-05-17] MEDS: Metoprolol Tartrate 25 MG TAB PO SCH ×2 (09:28→20:10)
[2020-05-17] MEDS: Fenofibrate Nanocrystallized 145 MG TAB PO SCH (09:28)
[2020-05-17] MEDS: Saccharomyces boulardii 250 MG CAP PO SCH (09:28)
[2020-05-17] MEDS: Atorvastatin Calcium 10 MG TAB PO SCH (20:10)
[2020-05-18 05:04] LABS: #Basophils 0.1 thou/uL (0.0-0.2); #Eosinphils 0.2 thou/uL (0.0-0.7); #Lymphocytes 1.9 thou/uL (1.20-3.40); #Monocytes 0.9 thou/uL (0.11-0.59); #Neutrophils 6.7 thou/uL (1.40-6.50); %Basophils 0.7 % (0.0-1.0); %Eosinophils 2.3 % (0.0-10.0); %Lymphocytes 19.2 % (21.0-51.0); %Monocytes 9.5 % (0.0-10.0); %Neutrophils 68.3 % (42.0-75.0); Hemoglobin 14.4 g/dL (14.0-18.0); Mean Corpuscular HGB CONC 32.5 g/dL (32.0-36.0); Mean Corpuscular Volume 92.5 fL (78.0-98.0); Mean Platelet Volume 8.4 fL (7.4-10.4); Platelet Count 182 thou/uL (130-400); RBC Distribution Width 12.7 % (11.5-14.5); White Blood Cell (WBC) Count 9.9 thou/uL (4.8-10.8)
[2020-05-18 05:38] LABS: ALT (SGPT) 21 U/L (8-55); AST (SGOT) 32 U/L (5-34); Albumin 3.8 g/dL (3.4-4.8); Alkaline Phosphatase 27 U/L (40-110); Anion Gap 14 mmol/L (10-20); BUN (Urea Nitrogen) 16 mg/dL (8.4-25.7); Bilirubin, Total 1.1 mg/dL (0.2-1.2); Calc. Creatinine Clearance 67 mL/min (70-130); Calcium 9.4 mg/dL (7.8-10.44); Carbon Dioxide 23 mmol/L (23-31); Chloride 102 mmol/L (98-107); Estimated GFR-MDRD 72; Globulin 2.7 g/dL (2.4-3.5); Glucose 103 mg/dL (83-110); Magnesium 1.9 mg/dL (1.6-2.6); Potassium 3.7 mmol/L (3.5-5.1); Protein, Total 6.5 g/dL (5.8-8.1); Sodium 135 mmol/L (136-145)
[2020-05-18] MEDS: levETIRAcetam 500 MG TAB PO SCH (08:29)
[2020-05-18] MEDS: Metoprolol Tartrate 25 MG TAB PO SCH (08:29)
[2020-05-18] MEDS: Fenofibrate Nanocrystallized 145 MG TAB PO SCH (08:29)
[2020-05-18] MEDS: Famotidine 20 MG TAB PO SCH (08:29)
[2020-05-18] MEDS: Saccharomyces boulardii 250 MG CAP PO SCH (08:30)
[2020-05-18] MEDS: Oxybutynin ER 5 MG TAB PO SCH (08:30)
--- NOTE | 2020-05-18 10:04 | PDOC.HOSPP ---
- Subjective Encounter Date: 05/18/20 Encounter Time: 11:30 Subjective: Patient seen and examined for ICH. No new focal deficits/N/V/Headache. No new complaints. No overnight events - Objective Vital Signs & Weight: Vital Signs (12 hours) Temp Pulse Pulse Resp BP BP BP 05/18/20 09:09 69 139/69 117/64 05/18/20 07:39 97.9 F 60 16 130/64 05/18/20 04:56 98.4 F 61 17 05/18/20 01:30 97.5 F L 65 17 BP Pulse Ox 05/18/20 09:09 05/18/20 07:39 93 L 05/18/20 04:56 107/57 L 93 L 05/18/20 01:30 97/55 L 94 L Weight Admit Weight 180 lb Weight 174 lb Most Recent Monitor Data Heart Rate from ECG 62 NIBP 116/65 NIBP BP-Mean 82 Respiration from ECG 19 SpO2 100 I&O: 05/17/20 05/18/20 05/19/20 06:59 06:59 06:59 Intake Total 450 300 Balance 450 300 Result Diagrams: 05/18/20 04:32 05/18/20 04:33 EKG Reviewed by me: Yes (Tele SR) Hospitalist ROS - Review of Systems Respiratory: denies: cough, dry, shortness of breath, hemoptysis, SOB with excertion, pleuritic pain, sputum, wheezing, other Cardiovascular: denies: chest pain, palpitations, orthopnea, paroxysmal noc. dyspnea, edema, light headedness, other Gastrointestinal: denies: nausea, vomiting, abdominal pain, diarrhea, constipation, melena, hematochezia, other - Medication Medications: Active Medications Generic Name Dose Route Start Last Admin Trade Name Freq PRN Reason Stop Dose Admin Acetaminophen 650 mg 05/11/20 23:35 05/14/20 18:28 Tylenol PO 650 mg Q6H PRN Administration Fever > 101 or Headache Atorvastatin Calcium 10 mg 05/12/20 21:00 05/17/20 20:10 Lipitor PO 10 mg HS FERMIN Administration Famotidine 20 mg 05/17/20 09:00 05/18/20 08:29 Pepcid PO 20 mg BID FERMIN Administration Fenofibrate 145 mg 05/12/20 09:00 05/18/20 08:29 Tricor PO 145 mg DAILY FERMIN Administration Levetiracetam 500 mg 05/12/20 09:00 05/18/20 08:29 Keppra PO 500 mg BID FERMIN Administration Metoprolol Tartrate 25 mg 05/12/20 09:00 05/18/20 08:29 Lopressor PO 25 mg BID FERMIN Administration Oxybutynin Chloride 10 mg 05/17/20 09:00 05/18/20 08:30 Ditropan Xl PO 10 mg DAILY FERMIN Administration Saccharomyces Boulardii 250 mg 05/17/20 09:00 05/18/20 08:30 Florastor PO 250 mg DAILY FERMIN Administration Sertraline HCl 25 mg 05/12/20 09:00 05/18/20 08:30 Zoloft PO 25 mg DAILY FERMIN Administration Sodium Chloride 10 ml 05/13/20 21:00 05/18/20 08:30 Flush - Normal Saline IVF 10 ml Q12HR FERMIN Administration - Exam General Appearance: NAD Heart: RRR, no gallops Respiratory: no wheezes, no ronchi Gastrointestinal: non-tender, non-distended, normal bowel sounds Extremities: no cyanosis, no clubbing Neurological: no new deficit Hosp A/P - Plan DVT proph w/SCDs ICH -no neurosurgical intervention needed -Anticoag dced due to ICH -on Keppra for seizure prophylaxis CAD CKD 2 Factor XII deficiency HTN Hx of pulmonary embolus Anxiety Supratherapeutic INR on admission Overactive bladder -on Oxybutinin Transient diarrhea - resolved BPH PLAN: Await placement - stable for dc Cont Keppra Cont Neurochecks Resume Flomax Cont other meds as above Pt not on antiplatelet/anticoag due to ICH
[2020-05-18 11:56] VITALS: BP 112/61; TEMP 97.3
--- NOTE | 2020-05-18 12:42 | PDOC.HOSPP ---
- Subjective Encounter Date: 05/18/20 Subjective: NEUROLOGY PROGRESS NOTE Patient alert and oriented and following commands . No acute events overnight. - Objective Vital Signs & Weight: Vital Signs (12 hours) Temp Pulse Pulse Resp BP BP BP 05/18/20 11:38 97.3 F L 65 18 112/61 05/18/20 09:09 69 139/69 117/64 05/18/20 07:39 97.9 F 60 16 130/64 05/18/20 04:56 98.4 F 61 17 05/18/20 01:30 97.5 F L 65 17 BP Pulse Ox 05/18/20 11:38 96 05/18/20 09:09 05/18/20 07:39 93 L 05/18/20 04:56 107/57 L 93 L 05/18/20 01:30 97/55 L 94 L Weight Admit Weight 180 lb Weight 174 lb Most Recent Monitor Data Heart Rate from ECG 62 NIBP 116/65 NIBP BP-Mean 82 Respiration from ECG 19 SpO2 100 I&O: 05/17/20 05/18/20 05/19/20 06:59 06:59 06:59 Intake Total 450 300 Balance 450 300 Result Diagrams: 05/18/20 04:32 05/18/20 04:33 Radiology Reviewed by me: Yes EKG Reviewed by me: Yes Hospitalist ROS - Review of Systems Constitutional: denies: fever, chills, sweats, weakness, malaise, other Eyes: denies: pain, vision change, conjunctivae inflammation, eyelid inflammation, redness, other ENT: denies: ear pain, ear discharge, nose pain, nose discharge, nose congestion , mouth pain, mouth swelling, throat pain, throat swelling, other Respiratory: denies: cough, dry, shortness of breath, hemoptysis, SOB with excertion, pleuritic pain, sputum, wheezing, other Cardiovascular: denies: chest pain, palpitations, orthopnea, paroxysmal noc. dyspnea, edema, light headedness, other Gastrointestinal: denies: nausea, vomiting, abdominal pain, diarrhea, constipation, melena, hematochezia, other Genitourinary: denies: dysuria, frequency, incontinence, hematuria, retention, other Musculoskeletal: denies: neck pain, shoulder pain, arm pain, back pain, hand pain, leg pain, foot pain, other Neurological: denies: weakness, numbness, incoordination, change in speech, confusion, seizures, other - Medication Medications: Active Medications Generic Name Dose Route Start Last Admin Trade Name Odin PRN Reason Stop Dose Admin Acetaminophen 650 mg 05/11/20 23:35 05/14/20 18:28 Tylenol PO 650 mg Q6H PRN Administration Fever > 101 or Headache Atorvastatin Calcium 10 mg 05/12/20 21:00 05/17/20 20:10 Lipitor PO 10 mg HS FERMIN Administration Famotidine 20 mg 05/17/20 09:00 05/18/20 08:29 Pepcid PO 20 mg BID FERMIN Administration Fenofibrate 145 mg 05/12/20 09:00 05/18/20 08:29 Tricor PO 145 mg DAILY FERMIN Administration Levetiracetam 500 mg 05/12/20 09:00 05/18/20 08:29 Keppra PO 500 mg BID FERMIN Administration Metoprolol Tartrate 25 mg 05/12/20 09:00 05/18/20 08:29 Lopressor PO 25 mg BID FERMIN Administration Oxybutynin Chloride 10 mg 05/17/20 09:00 05/18/20 08:30 Ditropan Xl PO 10 mg DAILY FERMIN Administration Saccharomyces Boulardii 250 mg 05/17/20 09:00 05/18/20 08:30 Florastor PO 250 mg DAILY FERMIN Administration Sertraline HCl 25 mg 05/12/20 09:00 05/18/20 08:30 Zoloft PO 25 mg DAILY FERMIN Administration Sodium Chloride 10 ml 05/13/20 21:00 05/18/20 08:30 Flush - Normal Saline IVF 10 ml Q12HR FERMIN Administration - Exam General Appearance: awake alert Eye: PERRL ENT: normocephalic atraumatic Neck: supple Heart: RRR Respiratory: CTAB Gastrointestinal: soft Extremities: no cyanosis Skin: normal turgor Neurological: no new deficit Psychiatric: A&O x 3 Hosp A/P (1) ICH (intracerebral hemorrhage) Code(s): I61.9 - NONTRAUMATIC INTRACEREBRAL HEMORRHAGE, UNSPECIFIED Status: Acute (2) CAD (coronary artery disease) Code(s): I25.10 - ATHSCL HEART DISEASE OF [place] CORONARY ARTERY W/O ANG PCTRS Status: Acute (3) CKD (chronic kidney disease) Code(s): N18.9 - CHRONIC KIDNEY DISEASE, UNSPECIFIED Status: Acute (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 Clinically stable . No acute issues. Patient stable. Awaiting discharge to rehab pending insurance. CM on board. HCT showed stable left temporal hemorrhage. No surgical intervention needed at this time per NSGY.. EEG reviewed and was negative for seizure activity. CTA head negative for aneurysm or stenosis. Telemetry Hold anticoagulation due to bleed. Strict control of BP. PT/OT/Speech. Continue medical management per primary team. Plan discussed with the patient and the stroke team during MDR rounds.
--- NOTE | 2020-05-18 16:59 | DIS ---
DATE OF ADMISSION: 05/11/2020 DATE OF DISCHARGE: 05/18/2020 DISCHARGE DISPOSITION: Inpatient rehabilitation. ALLERGIES: THE PATIENT IS ALLERGIC TO CLINDAMYCIN AND PENICILLIN. DISCHARGE MEDICATIONS: 1. Aspirin and warfarin were discontinued. The patient was started on Keppra 500 mg b.i.d. 2. All other home medications were left unchanged. BRIEF HOSPITAL COURSE: The patient is a 79-year-old male with hypertension, coronary artery disease, history of pulmonary embolism, and factor XII clotting disorder, presented to the hospital with altered mentation with increasing lethargy. CT scan of the brain in the emergency room was consistent with acute hematoma in the left temporal lobe in the middle cranial fossa with intraventricular extension. The patient was admitted to the intensive care unit. He was evaluated by Neurosurgery. The patient was not a surgical candidate per Neurosurgery. He was also seen by ecg technician as well as Neurology. The EEG was consistent with mild generalized nonspecific cerebral dysfunction. Later on, the patient was transferred to the Stroke Unit. His repeat CT scan next morning did not show significant worsening. He will follow up in Neurosurgery as outpatient. Anticoagulation and antiplatelet agent have been discontinued due to intracranial bleed. He will be discharged to inpatient rehabilitation. FINAL DIAGNOSES: 1. Generalized weakness with lethargy and fatigue due to intracranial bleed as discussed above. 2. Supratherapeutic INR on admission. 3. Coronary artery disease. 4. Chronic kidney disease, stage 2. 5. Factor XII deficiency. 6. Hypertension. 7. History of pulmonary embolism. 8. Anxiety. 9. Overactive bladder. 10. Benign prostatic hypertrophy. 11. Transient diarrhea, resolved. The time coordinating the discharge of this patient was 35 minutes. Job ID: [id number]
[2020-05-18] MEDS ORDERED: Dutasteride 0.5 MG CAP PO SCH (21:00)
[2020-05-18] MEDS ORDERED: Tamsulosin HCl 0.4 MG CAP PO SCH (21:00)
== END 2020-05-18 17:32 | DRG 64 ==
LOC: ERS 21:30 → CCU 23:00 → 2SE 05-14 17:09
PROVIDERS: ADMIT Internal Medicine; ATTEND Internal Medicine
DX: I61.5 Nontraumatic intracerebral hemorrhage, intraventricular (principal); I21.A1 Myocardial infarction type 2; D68.2 Hereditary deficiency of other clotting factors; I25.10 Atherosclerotic heart disease of native coronary artery without angina pectoris; N18.2 Chronic kidney disease, stage 2 (mild); I12.9 Hypertensive chronic kidney disease with stage 1 through stage 4 chronic kidney disease, or unspecified chronic kidney disease; F41.9 Anxiety disorder, unspecified; N32.81 Overactive bladder; N40.0 Benign prostatic hyperplasia without lower urinary tract symptoms; R47.02 Dysphasia; R29.702 NIHSS score 2; R40.2362 Coma scale, best motor response, obeys commands, at arrival to emergency department; R40.2142 Coma scale, eyes open, spontaneous, at arrival to emergency department; R40.2252 Coma scale, best verbal response, oriented, at arrival to emergency department; I61.1 Nontraumatic intracerebral hemorrhage in hemisphere, cortical; R19.7 Diarrhea, unspecified; Z86.711 Personal history of pulmonary embolism; Z88.0 Allergy status to penicillin; Z88.1 Allergy status to other antibiotic agents; Z95.0 Presence of cardiac pacemaker; Z95.5 Presence of coronary angioplasty implant and graft
CPT/HCPCS: 36415; 36416; 70450; 70496; 80048; 80053; 82550; 82553; 83735; 84484; 85025; 85610; 85730; 93005; 94760; 95712; 95816; 95819; 95957; 96374; 96375; C9132; J2405; J3010; J3430; Q9967; S0028